=== PATIENT | female | born 1995 | race Caucasian/White ===

== ENCOUNTER 2023-08-13 04:22 | Emergency (ER) | payer BC, SELFPAY ==
[2023-08-13] VITALS (7 sets, daily range): BP systolic 96–114; BP diastolic 53–76; BMI 20.8
--- NOTE | 2023-08-13 04:58 | ED.GENMED ---
History of Present Illness
<Justice Sullivan DO - Last Filed: 08/13/23 06:32>
General
Chief Complaint: Abdominal Pain
Source: patient
Time Seen by Provider: 08/13/23 04:38
Nursing documentation reviewed up to this point in time: agreed with
Travel History
Have you had any contact with someone who has COVID-19?: No
Do you have any symptoms of coronavirus? Fever > 100 degrees, chills, cough, shortness of breath, sore throat, loss of taste or smell, muscle aches, or headache?: No
History of Present Illness
History of Present Illness:
This a pleasant 48-year-old female who presents with nausea, vomiting, nonbloody diarrhea, and generalized abdominal pain since yesterday around 9 PM. Patient concerned because she had takeout a few hours earlier and thought she had food poisoning.
She denies fever or chills. She states that she has not attempted to keep anything down. She did not take any antiemetics or antipyretics. Patient reports no medical problems. She does not take any medicines on a daily basis with the exception
of control pills. Her last menstrual period was over 1 week ago. She is does not feel that she could be . 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 She denies any chemical exposures. She does not smoke, drink
alcohol in excess, or do illicit drugs. She denies marijuana use. She reports no sick contacts. Denies chest pain or shortness of breath.
Past History
<DO Gatito Bragg Last Filed: 08/13/23 06:32>
Past History
ED Past Medical History: Psychiatric (Depression)
ED Past Surgical History: Appendectomy
Social History
Tobacco: Non-smoker
Alcohol: None
Personal: Single
Living: with family
Employment: Employed
Review of Systems
<DO Gatito Bragg Last Filed: 08/13/23 06:32>
Review of Systems
Allergies reviewed?: Yes
All Other Systems: ROS reviewed and negative except as documented in HPI and ROS
Constitutional: Reports no symptoms
EENT: Reports no symptoms
Respiratory: Reports no symptoms
Cardiac: Reports no symptoms
ABD/GI: Reports abdominal pain, nausea, vomiting and diarrhea
: Reports no symptoms
Musculoskeletal: Reports no symptoms
Skin: Reports no symptoms
Neurological: Reports no symptoms
Endocrine: Reports no symptoms
Hematologic/Lymphatic: Reports no symptoms
Psychiatric: Reports no symptoms
Phy Exam
<DO Gatito Bragg Filed: 08/13/23 06:32>
General Physical Exam
General Presentation: well appearing and no apparent distress
General Skin: warm and dry
General Habitus: normal
General Mental: alert
General Hydration: appears well hydrated
ENT Exam
ENT Exam: EOMI, pharynx normal, neck supple and normocephalic
Eye Exam
Eye Exam: PERRL, cornea clear and conjunctiva normal
Cardiovascular Exam
Cardiovascular Exam: regular rate/rhythm, no edema, no murmur and normal peripheral pulses
Pulmonary Exam
Pulmonary Exam: lungs clear, no respiratory distress, no rales, no crackles, no rhonchi, no stridor, no wheezing and no cough
Gastrointestinal Exam
Gastrointestinal Exam: normal bowel sounds, non tender, soft, no organomegaly, no pulsatile mass and non distended
Neurological Exam
Neurological Exam: alert, oriented x3, no motor deficits and speech normal
Musculoskeletal Exam
Musculoskeletal Exam: full ROM and no edema
Skin Exam
Skin Exam: normal color, warm/dry, no rash and no petechia
Psychiatric Exam
Psychiatric Exam: normal mood/affect
Course
<DO Gatito Bragg Filed: 08/13/23 06:32>
Orders/Labs/Results
Orders:
Orders
08/13/23 04:37
Electrocardiogram (*1) Urgent
Reason for Study: Abdominal Pain
EKG- Treatment ONCE
Test Result ONCE
08/13/23 04:55
0.9% Sodium Chloride 1000 ml [Nss] 1,000 ml IV BOLUS
Ondansetron Injectable [Zofran] 4 mg IV NOW STA
08/13/23 05:00
Complete Blood Count/With Diff Urgent
08/13/23 05:31
COVID-19 Antigen Urgent
Source: Nasal Swab
Comprehensive Metabolic Panel Urgent
HCG, Serum Qualitative Screen Urgent
Lipase Urgent
Troponin I Urgent
Influenza A+B Rapid Molecular Urgent
MAREN Source: Nasal Swab
Specimen Description:
08/13/23 05:59
Urinalysis Reflex To Culture Urgent
Date Specimen was Collected: 08/13/23
Time Specimen was Collected: 05:54
Urine Microscopic Reflex Cult Urgent
Urine Culture Urgent
MAREN Source: U
Specimen Description:
Date Specimen was Collected: 08/13/23
Time Specimen was Collected: 05:54
08/13/23 06:34
Ondansetron Injectable [Zofran] 4 mg .ROUTE .STK-MED ONE
08/13/23 06:35
Ondansetron Injectable [Zofran] 4 mg IV NOW STA
08/13/23 06:43
CT Abd/pel Without Iv Or Oral Urgent
Comment:
Reason For Exam: diffuse abdominal and flank pain
08/13/23 08:08
Metoclopramide [Reglan] 10 mg IV NOW STA
08/13/23 08:41
0.9% Sodium Chloride 1000 ml [Nss] 1,000 ml IV BOLUS
Abnormal Lab Results
08/13/23 08/13/23 08/13/23
05:00 05:31 05:59
WBC 15.3 H 10^3/uL
(4.8-10.8)
Hgb 10.7 L g/dL
(12.0-16.0)
Hct 34.6 L %
(37.0-47.0)
MCV 74.7 L fL
(81.0-99.0)
MCH 23.1 L pg
(27.0-31.0)
MCHC 30.9 L g/dL
(33.0-37.0)
Abs Immat Gran (auto) 0.1 H 10^3/uL
(0-0.05)
Absolute Neuts (auto) 14.1 H 10^3/uL
(1.4-6.5)
Absolute Lymphs (auto) 0.4 L 10^3/uL
(1.2-3.4)
Absolute Monos (auto) 0.7 H 10^3/uL
(0.1-0.6)
Immature Gran % 0.6 H %
(0-0.5)
Neutrophils % 92.1 H %
(42.2-75.2)
Lymphocytes % 2.5 L %
(20.5-51.1)
Chloride 108 H mmol/L
(98-107)
Carbon Dioxide 21 L mmol/L
(22-30)
Glucose 114 H mg/dl
(70-99)
Total Protein 8.4 H g/dl
(6.3-8.2)
Urine Ketones 1+ A
(Negative)
Ur Occult Blood Reflex 2+ A
(Negative)
Urine Bilirubin 1+ A
(Negative)
Leukocyte Esterase Rfl Trace A
(Negative)
Urine RBC 3-6 A /HPF
(0-2)
Urine Bacteria (Reflex) Moderate A
(Negative)
08/13/23 05:00
08/13/23 05:31
Vital Signs
Initial and Last Documented VS:
Initial Vital Signs
Temp Pulse Resp BP Pulse Ox
98.2 F 110 20 114/76 100
08/13/23 04:25 08/13/23 04:25 08/13/23 04:25 08/13/23 04:25 08/13/23 04:25
Last Documented Vital Signs
Temp Pulse Resp BP Pulse Ox
98.2 F 109 18 98/53 98
08/13/23 04:25 08/13/23 10:15 08/13/23 10:15 08/13/23 10:15 08/13/23 10:15
<Abbey Farah MD - Last Filed: 08/13/23 13:21>
Orders/Labs/Results
Orders:
Orders
08/13/23 04:37
Electrocardiogram (*1) Urgent
Reason for Study: Abdominal Pain
EKG- Treatment ONCE
Test Result ONCE
08/13/23 04:55
0.9% Sodium Chloride 1000 ml [Nss] 1,000 ml IV BOLUS
Ondansetron Injectable [Zofran] 4 mg IV NOW STA
08/13/23 05:00
Complete Blood Count/With Diff Urgent
08/13/23 05:31
COVID-19 Antigen Urgent
Source: Nasal Swab
Comprehensive Metabolic Panel Urgent
HCG, Serum Qualitative Screen Urgent
Lipase Urgent
Troponin I Urgent
Influenza A+B Rapid Molecular Urgent
MAREN Source: Nasal Swab
Specimen Description:
08/13/23 05:59
Urinalysis Reflex To Culture Urgent
Date Specimen was Collected: 08/13/23
Time Specimen was Collected: 05:54
Urine Microscopic Reflex Cult Urgent
Urine Culture Urgent
MAREN Source: U
Specimen Description:
Date Specimen was Collected: 02/28/24
Time Specimen was Collected: 05:54
08/13/23 06:34
Ondansetron Injectable [Zofran] 4 mg .ROUTE .STK-MED ONE
08/13/23 06:35
Ondansetron Injectable [Zofran] 4 mg IV NOW STA
08/13/23 06:43
CT Abd/pel Without Iv Or Oral Urgent
Comment:
Reason For Exam: diffuse abdominal and flank pain
08/13/23 08:08
Metoclopramide [Reglan] 10 mg IV NOW STA
08/13/23 08:41
0.9% Sodium Chloride 1000 ml [Nss] 1,000 ml IV BOLUS
Abnormal Lab Results
08/13/23 08/13/23 08/13/23
05:00 05:31 05:59
WBC 15.3 H 10^3/uL
(4.8-10.8)
Hgb 10.7 L g/dL
(12.0-16.0)
Hct 34.6 L %
(37.0-47.0)
MCV 74.7 L fL
(81.0-99.0)
MCH 23.1 L pg
(27.0-31.0)
MCHC 30.9 L g/dL
(33.0-37.0)
Abs Immat Gran (auto) 0.1 H 10^3/uL
(0-0.05)
Absolute Neuts (auto) 14.1 H 10^3/uL
(1.4-6.5)
Absolute Lymphs (auto) 0.4 L 10^3/uL
(1.2-3.4)
Absolute Monos (auto) 0.7 H 10^3/uL
(0.1-0.6)
Immature Gran % 0.6 H %
(0-0.5)
Neutrophils % 92.1 H %
(42.2-75.2)
Lymphocytes % 2.5 L %
(20.5-51.1)
Chloride 108 H mmol/L
(98-107)
Carbon Dioxide 21 L mmol/L
(22-30)
Glucose 114 H mg/dl
(70-99)
Total Protein 8.4 H g/dl
(6.3-8.2)
Urine Ketones 1+ A
(Negative)
Ur Occult Blood Reflex 2+ A
(Negative)
Urine Bilirubin 1+ A
(Negative)
Leukocyte Esterase Rfl Trace A
(Negative)
Urine RBC 3-6 A /HPF
(0-2)
Urine Bacteria (Reflex) Moderate A
(Negative)
08/13/23 05:00
08/13/23 05:31
Vital Signs
Initial and Last Documented VS:
Initial Vital Signs
Temp Pulse Resp BP Pulse Ox
98.2 F 110 20 114/76 100
08/13/23 04:25 08/13/23 04:25 08/13/23 04:25 08/13/23 04:25 08/13/23 04:25
Last Documented Vital Signs
Temp Pulse Resp BP Pulse Ox
98.2 F 109 18 98/53 98
08/13/23 04:25 08/13/23 10:15 08/13/23 10:15 08/13/23 10:15 08/13/23 10:15
<Abbey Farah MD - Last Filed: 08/13/23 13:21>
*Radiology
Radiology exam reviewed: radiology read reviewed
*Pulse Oximetry
Patient hypoxic: no
*EKG
Interpreted by ED Provider?: NA
*Mathematics Lecturer Interpretation
Rate: normal
Interpretation: normal
Rhythm: sinus
*Critical Care Note
Total Time (30-74mins, 75-104mins- exclusive of procedures): Not Applicable
<Justice Sullivan DO - Last Filed: 08/13/23 06:32>
Update Note
Update Note:
Vital signs are stable. Patient not hypoxic
Nursing note reviewed. I agree with nursing documentation up to this point in time.
Home Meds and allergies reviewed.
NUMBER AND COMPLEXITY OF PROBLEMS ADDRESSED AT THE ENCOUNTER
� Chronic conditions affecting care: Kidney reflux as a child, now resolved
� Acute Exacerbation and/or Progression of Chronic Illness: None
� Differential Diagnosis includes: Kidney stone, enteritis, hematuria, viral syndrome
AMOUNT AND/OR COMPLEXITY OF DATA TO BE REVIEWED AND ANALYZED
I performed an independent evaluation of the following and my interpretation is:
EKG: EKG shows normal sinus rhythm rate of 96 normal intervals, normal axis. No evidence of acute ischemia present.
CT:
X-rays:
Ultrasound:
Laboratory Studies: 15,000 white count, occult blood in urine while not menstruating
Other:
Review of other/old records: Previous ER records
Clinical information was obtained by an independent historian:
Prescriptions/Medications Considered but not given:
Further testing considered but not performed:
RISK OF COMPLICATIONS AND/OR MORBIDITY OR MORTALITY OF PATIENT MANAGEMENT
Social determinants of health affecting care: Good Social Support
Discussion with other providers:
Escalation of care including admission/observation vs risk of discharge considered: At this time, discharge not indicated.
CRITICAL CARE NOTE:
Total Time (exclusive of procedures):
Update:
<Abbey Farah MD - Last Filed: 08/13/23 13:21>
Update Note
Update Note:
Vital signs are stable. Patient not hypoxic
Nursing note reviewed. I agree with nursing documentation up to this point in time.
Home Meds and allergies reviewed.
NUMBER AND COMPLEXITY OF PROBLEMS ADDRESSED AT THE ENCOUNTER
� Chronic conditions affecting care: Kidney reflux as a child, now resolved
� Acute Exacerbation and/or Progression of Chronic Illness: None
� Differential Diagnosis includes: Kidney stone, enteritis, hematuria, viral syndrome
AMOUNT AND/OR COMPLEXITY OF DATA TO BE REVIEWED AND ANALYZED
I performed an independent evaluation of the following and my interpretation is:
EKG: EKG shows normal sinus rhythm rate of 96 normal intervals, normal axis. No evidence of acute ischemia present.
CT:
X-rays:
Ultrasound:
Laboratory Studies: 15,000 white count, occult blood in urine while not menstruating
Other:
Review of other/old records: Previous ER records
Clinical information was obtained by an independent historian:
Prescriptions/Medications Considered but not given:
Further testing considered but not performed:
RISK OF COMPLICATIONS AND/OR MORBIDITY OR MORTALITY OF PATIENT MANAGEMENT
Social determinants of health affecting care: Good Social Support
Discussion with other providers:
Escalation of care including admission/observation vs risk of discharge considered: At this time, discharge not indicated.
CRITICAL CARE NOTE:
Total Time (exclusive of procedures):
Update:
8:50 AM patient's CAT scan report read. Shows no obstructing renal or ureteral calculi nor hydronephrosis or hydroureter. Pancreas and gallbladder appear normal. There is no abdominal pelvic or inguinal lymphadenopathy there was 2 right-sided
ovarian cysts seen as well as a 6 mm calcification in the right ovary worrisome for dermoid. Pelvic ultrasound recommended. I informed patient of these results and we are now going to send her for pelvic ultrasound
9:50 AM patient went down to have an ultrasound done but her bladder was not full enough. Patient was encouraged to stay for ultrasound. Patient adamantly wants to go and states that her pain is gone and she feels better. She understands that she
needs to follow-up with her plating stripper soon as possible for worrisome right-sided ovarian cyst. Patient will be given a copy of her CAT scan report and will be encouraged to call her plating stripper soon as possible
ED Attending Note
<Justice Sullivan, DO - Last Filed: 08/13/23 06:32>
-
Portions of this chart may have been created with voice recognition software.� Occasional wrong word or��sound alike� substitutions may have occurred due to the inherent limitations of voice recognition software.
Discharge Plan
Departure
Patient Disposition: Home (Routine Discharge)
Date of Disposition: 08/13/23
Time of Disposition: 09:48
Patient with high blood pressure during this ER visit?: No
Condition: Good
Covid-19: Negative COVID-19
Discharge Problem:
Nausea & vomiting
Instructions: Nausea and Vomiting, Adult (DC)
Prescriptions:
New
metoclopramide HCl [Reglan] 10 mg tablet
10 mg PO Q8HPRN PRN (Reason: nausea and vomiting) Qty: 9 0RF
No Action
medroxyprogesterone [Depo-Provera] 150 MG/1 ML syringe
150 mg IM .EVERY 3 MONTHS
prednisone 10 MG tablet
10 mg PO .TAPER Qty: 30 0RF
Rx Instructions:
Take 40mg daily x3days, 30mg daily x3days,
20mg daily x3days, 10mg daily x3days.
penicillin V potassium 500 MG tablet
500 mg PO QID Qty: 27 0RF
Referrals:
NONE,* [Family Provider] -
Stand Alone Forms: Return to Work
Activity Restrictions/Additional Instructions:
Follow-up with your plating stripper as soon as possible. Your CAT scan shows a right-sided ovarian cyst that needs closer follow-up and will need a pelvic ultrasound done as soon as possible.
Interventions
Interventions:
*Risk Screen - Suicide Last Done: 08/13/23 04:25
*General Assessment Last Done: 08/13/23 04:25
*Neglect/Abuse Screening Last Done: 08/13/23 04:25
ED- Fall Risk Assessment Last Done: 08/13/23 04:25
*ED COVID-19 Vaccine History Last Done: 08/13/23 04:25
*Nursing Disposition Last Done: 08/13/23 10:34
GI-Dwzuvx-Iglyomdwow Assessment Last Done: 08/13/23 08:18
Discharge Date and Time
Discharge Date/Time: 08/13/23 10:35
[2023-08-13] MEDS: NSS 1000 IV ×2 (05:05→08:41)
[2023-08-13 05:09] LABS: % Basophils 0.3 % (0-2); % Eosinophils 0.1 % (0-6); % Immature Granulocytes 0.6 % (0-0.5); % Lymphocytes 2.5 % (20.5-51.1); % Monocytes 4.4 % (1.7-9.3); % Neutrophils 92.1 % (42.2-75.2); Absolute Basophils 0.1 10^3/uL (0-0.2); Absolute Immature Granulocytes 0.1 10^3/uL (0-0.05); Absolute Lymphocytes 0.4 10^3/uL (1.2-3.4); Absolute Monocytes 0.7 10^3/uL (0.1-0.6); Absolute Neutrophils 14.1 10^3/uL (1.4-6.5); Hematocrit 34.6 % (37.0-47.0); Hemoglobin 10.7 g/dL (12.0-16.0); Mean Corp Hgb Conc. 30.9 g/dL (33.0-37.0); Mean Corpuscular Hgb 23.1 pg (27.0-31.0); Mean Corpuscular Volume 74.7 fL (81.0-99.0); Mean Platelet Volume 10.1 fL (7.4-10.4); Nucleated Red Blood Cells % 0 %; Platelet Count 361 10^3/uL (130-400); Red Blood Cell Count 4.63 10^6/uL (4.20-5.40); Red Cell Dist. Width 14.5 % (11.5-14.5); White Blood Cell Count 15.3 10^3/uL (4.8-10.8)
[2023-08-13] MEDS: ZOFRAN 4 MG IV ×2 (05:17→06:35)
[2023-08-13 05:58] LABS: HCG, Serum Qualitative Screen Negative
[2023-08-13 06:05] LABS: ALT (SGPT) 13 U/L (0-35); AST (SGOT) 23 U/L (14-36); Albumin 4.9 g/dl (3.5-5.0); Alkaline Phosphatase 69 U/L (38-126); Blood Urea Nitrogen 13 mg/dl (7-17); COVID-19 Antigen Negative (Negative); Calcium 9.4 mg/dl (8.4-10.2); Carbon Dioxide 21 mmol/L (22-30); Chloride 108 mmol/L (98-107); Estimated Creatinine Clearance 78 ml/min; Glucose 114 mg/dl (70-99); Lipase 45 U/L (23-300); Potassium 4.1 mmol/L (3.5-5.1); Sodium 138 mmol/L (135-145); Total Protein 8.4 g/dl (6.3-8.2); eGFR > 60.00
[2023-08-13 06:12] LABS: Urine Albumin Trace (Neg - Trace); Urine Bilirubin 1+ (Negative); Urine Character Slightly Cloudy (Clear); Urine Color Yellow; Urine Glucose Negative (Negative); Urine Ketone 1+ (Negative); Urine Leukocyte Trace (Negative); Urine Nitrite Negative (Negative); Urine Occult Blood 2+ (Negative); Urine Urobilinogen Negative (Neg - 1+)
[2023-08-13 06:16] LABS: Troponin I < 0.012 ng/ml
[2023-08-13 06:31] LABS: Urine Squamous Cell 0-2 /LPF (Few)
[2023-08-13 06:32] LABS: Urine Mucus Moderate
[2023-08-13 06:38] LABS: Urine Bacteria Moderate (Negative)
[2023-08-13] MEDS: REGLAN 10 MG IV (08:13)
== END 2023-08-13 10:35 | disposition home or self-care (01) ==
LOC: EMR 04:22
PROVIDERS: EMERGENCY PHYSICIAN Student in an Organized Health Care Education/Training Program
DX: R11.2 Nausea with vomiting, unspecified (principal); R19.7 Diarrhea, unspecified
CPT/HCPCS: 99284; 96374; 96375; 96376; 96361; 74176; 80053; 81003; 81015; 83690; 84484; 84703; 85025; 87086; 87502; 87811; 93005

== ENCOUNTER 2023-08-16 11:40 | Emergency (ER) | payer BC, SELFPAY ==
[2023-08-16 11:44] VITALS: BP 102/66
[2023-08-16 12:21] VITALS: BP 100/87
--- NOTE | 2023-08-16 12:50 | ED.GENMED ---
History of Present Illness
General
Chief Complaint: Abdominal Symptoms
Source: patient
Exam Limitations: none
Time Seen by Provider: 08/16/23 12:26
Nursing documentation reviewed up to this point in time: agreed with
Travel History
Have you had any contact with someone who has COVID-19?: No
Do you have any symptoms of coronavirus? Fever > 100 degrees, chills, cough, shortness of breath, sore throat, loss of taste or smell, muscle aches, or headache?: No
History of Present Illness
History of Present Illness:
28 yr old female presents today for evaluation. Patient was seen here August 13 several days ago with nausea vomiting nonbloody diarrhea. She had a CAT scan which showed a right-sided ovarian cyst measuring 2.5-2.8 there is also a below bed 6 mm
calcification in the right very worrisome for dermoid. She was feeling better on nausea medicine but then today has not been able to hold down any liquids. She denies any abdominal pain.
Her only complaint is nausea.
Past History
Past History
ED Past Medical History: Psychiatric (Depression)
ED Past Surgical History: Appendectomy
Social History
Tobacco: Non-smoker
Alcohol: None
Personal: Single
Living: with family
Employment: Employed
Review of Systems
Review of Systems
Allergies reviewed?: Yes
All Other Systems: ROS reviewed and negative except as documented in HPI and ROS
Constitutional: Reports no symptoms; Denies fever, fatigue or chills
Respiratory: Reports no symptoms
Cardiac: Reports no symptoms
ABD/GI: Reports nausea and vomiting; Denies abdominal pain
: Reports no symptoms; Denies flank pain, urgency or discharge
Musculoskeletal: Reports no symptoms
Skin: Reports no symptoms
Neurological: Reports no symptoms
Psychiatric: Reports no symptoms
Phy Exam
General Physical Exam
General Presentation: no apparent distress
General age: appears stated age
General Skin: warm and dry
General Habitus: normal
General Mental: alert
General Hydration: dry mucous membranes
Cardiovascular Exam
Cardiovascular Exam: regular rate/rhythm, no murmur and normal peripheral pulses
Pulmonary Exam
Pulmonary Exam: lungs clear and no respiratory distress
Gastrointestinal Exam
Gastrointestinal Exam: non tender and soft
Musculoskeletal Exam
Musculoskeletal Exam: full ROM
Skin Exam
Skin Exam: normal color and warm/dry
Psychiatric Exam
Psychiatric Exam: normal mood/affect
Course
Orders/Labs/Results
Orders:
Orders
08/16/23 13:03
IV Insert/Care/Rem.- Treatment PRN
0.9% Sodium Chloride 1000 ml [Nss] 1,000 ml IV BOLUS
Metoclopramide [Reglan] 10 mg IV NOW STA
08/16/23 13:06
Basic Metabolic Panel Urgent
Complete Blood Count/With Diff Urgent
Lipase Urgent
Urinalysis Reflex To Culture Urgent
Date Specimen was Collected: 08/16/23
Time Specimen was Collected: 13:05
Urine Microscopic Reflex Cult Urgent
Urine Culture Urgent
MAREN Source: U
Specimen Description:
Date Specimen was Collected: 08/16/23
Time Specimen was Collected: 13:05
08/16/23 15:35
Ondansetron Injectable [Zofran] 4 mg IV NOW STA
08/16/23 15:37
Potassium Urgent
08/16/23 15:45
0.9% Sodium Chloride 1000 ml [Nss] 1,000 ml IV BOLUS
08/16/23 17:15
Potassium Chloride 10% Elixir [KCl Elixir] 40 meq PO NOW STA
08/16/23 17:44
Ondansetron Orally Disint [Zofran Odt (Orally Disintegrating)] 4 mg PO NOW STA
Abnormal Lab Results
08/16/23 08/16/23
13:06 15:37
Hgb 11.1 L g/dL
(12.0-16.0)
Hct 34.2 L %
(37.0-47.0)
MCV 72.6 L fL
(81.0-99.0)
MCH 23.6 L pg
(27.0-31.0)
MCHC 32.5 L g/dL
(33.0-37.0)
RDW 14.9 H %
(11.5-14.5)
MPV 10.9 H fL
(7.4-10.4)
Absolute Neuts (auto) 7.9 H 10^3/uL
(1.4-6.5)
Absolute Lymphs (auto) 0.7 L 10^3/uL
(1.2-3.4)
Neutrophils % 87.0 H %
(42.2-75.2)
Lymphocytes % 7.8 L %
(20.5-51.1)
Potassium 3.1 L mmol/L
(3.5-5.1)
Urine Ketones 2+ A
(Negative)
Ur Occult Blood Reflex 3+ A
(Negative)
Urine Bilirubin 1+ A
(Negative)
Leukocyte Esterase Rfl Trace A
(Negative)
Urine RBC 30-40 A /HPF
(0-2)
Urine WBC (Reflex) 11-15 A /HPF
(0-5)
Urine Bacteria (Reflex) Many A
(Negative)
Urine Albumin (Reflex) 2+ A
(Neg - Trace)
08/16/23 13:06
08/16/23 15:37
Vital Signs
Initial and Last Documented VS:
Initial Vital Signs
Temp Pulse Resp BP Pulse Ox
98.1 F 110 18 102/66 97
08/16/23 11:44 08/16/23 11:44 08/16/23 11:44 08/16/23 11:44 08/16/23 11:44
Last Documented Vital Signs
Temp Pulse Resp BP Pulse Ox
98.1 F 94 16 94/67 98
08/16/23 11:44 08/16/23 17:48 08/16/23 13:48 08/16/23 17:48 08/16/23 17:48
MDM/Problems Addressed
Differential Diagnosis Includes:
Not limited to viral syndrome gastroenteritis dehydration electrolyte abnormality
MDM/Problems Addressed:
Patient was seen here 08/13 with complaints of nausea vomiting. Patient now presents again with nausea vomiting denies any diarrhea denies any abdominal pain. Incidental findings were seen on prior imaging/right ovarian cyst patient aware and will
follow-up with social human services assistants. She presents awake alert no acute distress she was medicated for nausea here in the ER given fluids and now feeling much better. Potassium was mildly low however she was not able to tolerate oral KCl encourage Gatorade
with fluids for the next 24 hours and foods rich in potassium thereafter. Patient is nontoxic-appearing afebrile and safe for discharge
*Pulse Oximetry
Patient hypoxic: no
*Critical Care Note
Total Time (30-74mins, 75-104mins- exclusive of procedures): Not Applicable
Data Reviewed
Review of Other/Old Records Reveals: Radiology Studies and Other (last ED visit and prior imaging )
ED Attending Note
-
Portions of this chart may have been created with voice recognition software.� Occasional wrong word or��sound alike� substitutions may have occurred due to the inherent limitations of voice recognition software.
Discharge Plan
Departure
Patient Disposition: Home (Routine Discharge)
Date of Disposition: 08/16/23
Time of Disposition: 17:46
Patient with high blood pressure during this ER visit?: No
Condition: Fair
Covid-19: Not Applicable
Discharge Problem:
Nausea & vomiting
Instructions: Nausea and Vomiting, Adult (DC)
Prescriptions:
New
ondansetron 4 mg tablet,disintegrating
4 mg PO Q8H PRN (Reason: nausea and vomiting) Qty: 10 0RF
No Action
medroxyprogesterone [Depo-Provera] 150 MG/1 ML syringe
150 mg IM .EVERY 3 MONTHS
prednisone 10 MG tablet
10 mg PO .TAPER Qty: 30 0RF
Rx Instructions:
Take 40mg daily x3days, 30mg daily x3days,
20mg daily x3days, 10mg daily x3days.
penicillin V potassium 500 MG tablet
500 mg PO QID Qty: 27 0RF
metoclopramide HCl [Reglan] 10 mg tablet
10 mg PO Q8HPRN PRN (Reason: nausea and vomiting) Qty: 9 0RF
Referrals:
UNKNOWN - PT DOES,NOT KNOW [Family Provider] -
Stand Alone Forms: Return to Work
Activity Restrictions/Additional Instructions:
As discussed you may take Zofran as needed every 8 hours. Your potassium was slightly low at 3.1. Over the next 24 hours she may sip on Gatorade. After 24 hours bland solid foods increase your foods high in potassium such as bananas oranges
potatoes.
Return to the ER for any worsening of symptoms.
Interventions
Interventions:
*Risk Screen - Suicide Last Done: 08/16/23 12:23
*General Assessment Last Done: 08/16/23 12:22
*Neglect/Abuse Screening Last Done: 08/16/23 12:23
ED- Fall Risk Assessment Last Done: 08/16/23 12:23
*ED COVID-19 Vaccine History Last Done: 08/16/23 12:16
*Nursing Disposition Last Done: 08/16/23 18:05
WX-Xfiuif-Cxdlhudxjc Assessment Last Done: 08/16/23 12:23
Discharge Date and Time
Discharge Date/Time: 08/16/23 18:06
[2023-08-16] MEDS: REGLAN 10 MG IV (13:08)
[2023-08-16] MEDS: NSS 1000 IV ×2 (13:09→15:54)
[2023-08-16 13:14] LABS: % Basophils 0.2 % (0-2); % Immature Granulocytes 0.3 % (0-0.5); % Lymphocytes 7.8 % (20.5-51.1); % Monocytes 4.7 % (1.7-9.3); Absolute Lymphocytes 0.7 10^3/uL (1.2-3.4); Absolute Monocytes 0.4 10^3/uL (0.1-0.6); Absolute Neutrophils 7.9 10^3/uL (1.4-6.5); Hematocrit 34.2 % (37.0-47.0); Hemoglobin 11.1 g/dL (12.0-16.0); Mean Corp Hgb Conc. 32.5 g/dL (33.0-37.0); Mean Corpuscular Hgb 23.6 pg (27.0-31.0); Mean Corpuscular Volume 72.6 fL (81.0-99.0); Mean Platelet Volume 10.9 fL (7.4-10.4); Nucleated Red Blood Cells % 0 %; Platelet Count 234 10^3/uL (130-400); Red Blood Cell Count 4.71 10^6/uL (4.20-5.40); Red Cell Dist. Width 14.9 % (11.5-14.5); White Blood Cell Count 9.1 10^3/uL (4.8-10.8)
[2023-08-16 13:21] LABS: Urine Albumin 2+ (Neg - Trace); Urine Bilirubin 1+ (Negative); Urine Character Slightly Cloudy (Clear); Urine Color Yellow; Urine Glucose Negative (Negative); Urine Ketone 2+ (Negative); Urine Leukocyte Trace (Negative); Urine Nitrite Negative (Negative); Urine Occult Blood 3+ (Negative); Urine Urobilinogen Negative (Neg - 1+)
[2023-08-16 13:34] LABS: Urine Mucus Many; Urine Squamous Cell >30 /LPF (Few)
[2023-08-16 13:35] LABS: Urine Red Blood Cell 30-40 /HPF (0-2)
[2023-08-16 13:36] LABS: Urine Bacteria Many (Negative)
[2023-08-16 13:39] LABS: Blood Urea Nitrogen 17 mg/dl (7-17); Calcium 9.4 mg/dl (8.4-10.2); Carbon Dioxide 23 mmol/L (22-30); Chloride 104 mmol/L (98-107); Glucose 94 mg/dl (70-99); Lipase 69 U/L (23-300); Sodium 138 mmol/L (135-145); eGFR > 60.00
[2023-08-16 13:48] VITALS: BP 100/65
[2023-08-16 15:52] VITALS: BP 96/67
[2023-08-16] MEDS: ZOFRAN 4 MG IV (15:54)
[2023-08-16 16:05] LABS: Potassium 3.1 mmol/L (3.5-5.1)
[2023-08-16] MEDS: KCL ELIXIR 40 MEQ PO (17:20)
[2023-08-16 17:48] VITALS: BP 94/67
[2023-08-16] MEDS: ZOFRAN ODT (ORALLY DISINTEGRATING) 4 MG PO (17:57)
== END 2023-08-16 18:06 | disposition home or self-care (01) ==
LOC: EMR 11:40
PROVIDERS: Nurse Practitioner; EMERGENCY PHYSICIAN Emergency Medicine
DX: R11.2 Nausea with vomiting, unspecified (principal)
CPT/HCPCS: 99283; 96374; 96375; 96361; 80048; 81003; 81015; 83690; 84132; 85025; 87086

== ENCOUNTER 2024-03-21 17:35 | Emergency (ER) | payer BC, SELFPAY ==
[2024-03-21 17:38] VITALS: BP 111/63
--- NOTE | 2024-03-21 19:48 | ED.GENMED ---
History of Present Illness
<Odilia Hutchinson PA-C - Last Filed: 03/21/24 23:40>
General
Chief Complaint: Musculo-Skeletal Complaint
Source: patient
Exam Limitations: none
Time Seen by Provider: 03/21/24 19:29
Nursing documentation reviewed up to this point in time: agreed with
History of Present Illness
History of Present Illness:
Patient is a 29-year-old female presenting to the emergency department for evaluation of left arm injury occurring 2 days ago. Patient states that she was loading a box as she is moving when the box fell and she attempted to catch her with her left
arm. She feels that the box strained her left forearm. She has been having lingering pain in her left arm ranging from her left shoulder down to her left wrist. Patient denies any numbness/tingling in her left arm. She has been taking Advil at
home with some improvement in pain. Pain is persisting prompting patient's visit to the emergency department. No other injury sustained.
Past History
<Odilia Hutchinson PA-C - Last Filed: 03/21/24 23:40>
Past History
ED Past Medical History: Psychiatric (Depression)
ED Past Surgical History: Appendectomy
Social History
Tobacco: Non-smoker
Alcohol: None
Personal: Single
Living: with family
Employment: Employed
Review of Systems
<Odilia Hutchinson PA-C - Last Filed: 03/21/24 23:40>
Review of Systems
Allergies reviewed?: Yes
All Other Systems: ROS reviewed and negative except as documented in HPI and ROS
Phy Exam
<Odilia Hutchinson PA-C - Last Filed: 03/21/24 23:40>
Physical Exam
Physical Exam:
Vitals: Patient's vital signs are stable. Afebrile
General: Patient is well appearing, no acute distress
Skin: Warm and dry, no rashes or lesions
Head: Normocephalic, atraumatic
Throat: Protecting airway
Neck: Normal ROM, no cervical spine tenderness
Cardiac: Regular rate
Pulm: No apparent respiratory distress
Abdomen: Nondistended
Extremities: Left upper extremity without any obvious signs of trauma. No bony tenderness in left upper extremity from left hand to left shoulder/left clavicle. Patient has minimal pain in the left volar forearm and surrounding left shoulder.
Patient has full ability to flex/extend left wrist. Decent flexion/extension of left elbow. Patient does have limited ability to abduct/externally rotate left shoulder due to pain. Left upper extremity neurovascularly intact.
Neuro: Grossly intact
Psychiatric: Normal affect.
Course
<Odilia Hutchinson PA-C - Last Filed: 03/21/24 23:40>
Orders/Labs/Results
Orders:
Orders
03/21/24 17:42
CR Forearm - Left 2 View Urgent
Comment:
Reason For Exam: injury
CR Shoulder, Trauma - Left Urgent
Reason For Exam: injury
CR Wrist - Left Min 3 Views Urgent
Comment:
Reason For Exam: injury
03/21/24 19:48
Ibuprofen [Motrin] 600 mg PO NOW STA
03/21/24 19:57
Sling Left-Treatment ONCE
Vital Signs
Initial and Last Documented VS:
Initial Vital Signs
Temp Pulse Resp BP Pulse Ox
98.8 F 88 18 111/63 100
03/21/24 17:38 03/21/24 17:38 03/21/24 17:38 03/21/24 17:38 03/21/24 17:38
Last Documented Vital Signs
Temp Pulse Resp BP Pulse Ox
98.7 F 82 18 110/66 100
03/21/24 20:46 03/21/24 20:46 03/21/24 20:46 03/21/24 20:46 03/21/24 20:46
<Raman Noriega DO - Last Filed: 03/21/24 20:11>
Orders/Labs/Results
Orders:
Orders
03/21/24 17:42
CR Forearm - Left 2 View Urgent
Comment:
Reason For Exam: injury
CR Shoulder, Trauma - Left Urgent
Reason For Exam: injury
CR Wrist - Left Min 3 Views Urgent
Comment:
Reason For Exam: injury
03/21/24 19:48
Ibuprofen [Motrin] 600 mg PO NOW STA
03/21/24 19:57
Sling Left-Treatment ONCE
Vital Signs
Initial and Last Documented VS:
Initial Vital Signs
Temp Pulse Resp BP Pulse Ox
98.8 F 88 18 111/63 100
03/21/24 17:38 03/21/24 17:38 03/21/24 17:38 03/21/24 17:38 03/21/24 17:38
Last Documented Vital Signs
Temp Pulse Resp BP Pulse Ox
98.7 F 82 18 110/66 100
03/21/24 20:46 03/21/24 20:46 03/21/24 20:46 03/21/24 20:46 03/21/24 20:46
<Odilia Hutchinson PA-C - Last Filed: 03/21/24 23:40>
MDM/Problems Addressed
Differential Diagnosis Includes:
Not limited to: Rotator cuff injury, shoulder dislocation, left elbow strain, left bicep strain, cervical radiculopathy,
MDM/Problems Addressed:
29-year-old female presenting with left arm injury sustained 2 days ago. Patient very well-appearing, no apparent distress. On exam�there is no obvious trauma to left upper extremity or any bony tenderness. She does have limited ability to
abduct/externally rotate the left shoulder due to discomfort. Mild tenderness of left volar forearm. No edema or ecchymoses noted to left upper extremity. Left upper extremity neurovascular intact. X-rays were obtained in triage of left wrist,
left forearm, and left shoulder. There is no evidence of acute abnormality or fracture. Suspect likely rotator cuff injury versus sprain/muscular strain. Patient was given dose of Motrin in emergency department. Will place patient in left
shoulder sling and advise NSAIDs at home, ice. Patient offered left wrist splint as well�which she declined. Patient given referral to orthopedics if symptoms persist/worsen for possibly further imaging. Patient stable for discharge with return
precautions. Patient seen with attending physician.
Chronic conditions affecting care:
N/A
Acute Exacerbation and/or Progression of Chronic Illness:
N/A
<Odilia Hutchinson PA-C - Last Filed: 03/21/24 23:40>
*Radiology
Radiology exam reviewed: preliminary read by ED provider and radiology read reviewed
*Pulse Oximetry
Patient hypoxic: no
*EKG
Interpreted by ED Provider?: NA
*Tester Equipment Interpretation
Rate: Tester Equipment- N/A
*Critical Care Note
Total Time (30-74mins, 75-104mins- exclusive of procedures): Not Applicable
ED Attending Note
<Odilia Hutchinson PA-C - Last Filed: 03/21/24 23:40>
-
Portions of this chart may have been created with voice recognition software.� Occasional wrong word or��sound alike� substitutions may have occurred due to the inherent limitations of voice recognition software.
<Raman Noriega DO - Last Filed: 03/21/24 20:11>
ED Attending Note
Patient seen and examined by attending physician: Yes
I performed the substantive portion of visit, reviewed & personally made and approve the management plan that is documented in note by myself or MIGUEL.: Yes
Discharge Plan
Departure
Patient Disposition: Home (Routine Discharge)
Date of Disposition: 03/21/24
Time of Disposition: 19:59
Patient with high blood pressure during this ER visit?: No
Condition: Good
Covid-19: Not Applicable
Discharge Problem:
Injury of left shoulder
Instructions: Shoulder Sprain (DC)
Prescriptions:
No Action
medroxyprogesterone [Depo-Provera] 150 MG/1 ML syringe
150 mg IM .EVERY 3 MONTHS
prednisone 10 MG tablet
10 mg PO .TAPER Qty: 30 0RF
Rx Instructions:
Take 40mg daily x3days, 30mg daily x3days,
20mg daily x3days, 10mg daily x3days.
penicillin V potassium 500 MG tablet
500 mg PO QID Qty: 27 0RF
metoclopramide HCl [Reglan] 10 mg tablet
10 mg PO Q8HPRN PRN (Reason: nausea and vomiting) Qty: 9 0RF
ondansetron 4 mg tablet,disintegrating
4 mg PO Q8H PRN (Reason: nausea and vomiting) Qty: 10 0RF
Referrals:
Kee Atkins MD [Active] - As needed
Activity Restrictions/Additional Instructions:
RETURN TO THE EMERGENCY DEPARTMENT WITH ANY NUMBNESS/TINGLING IN LEFT UPPER EXTREMITY, INTRACTABLE PAIN, WORSENING IN CURRENT SYMPTOMS, OR ANY OTHER CONCERNS
-You should take motrin/ibuprofen as needed for pain. You can apply ice to left arm
-Keep left arm in shoulder sling. You should move your arm around frequently throughout the day to prevent frozen shoulder.
-If symptoms persist you should follow-up with orthopedics as you may require MRI imaging of your shoulder. The contact information has been provided for you above.
Monitor your symptoms closely and return to the emergency department with any acute worsening/new symptoms.
Interventions
Interventions:
*Risk Screen - Suicide Last Done: 03/21/24 17:38
*General Assessment Last Done: 03/21/24 17:38
*Neglect/Abuse Screening Last Done: 03/21/24 17:38
ED- Fall Risk Assessment Last Done: 03/21/24 20:46
*ED COVID-19 Vaccine History Last Done: 03/21/24 20:40
*Nursing Disposition Last Done: 03/21/24 20:46
ED-Musculoskeletal Assessment Last Done: 03/21/24 20:45
Discharge Date and Time
Discharge Date/Time: 03/21/24 20:47
Print Language: GHANAIAN
[2024-03-21] MEDS: MOTRIN 600 MG PO (20:24)
[2024-03-21 20:37] VITALS: BMI 19.9
[2024-03-21 20:46] VITALS: BP 110/66
== END 2024-03-21 20:47 | disposition home or self-care (01) ==
LOC: EMR 17:35
PROVIDERS: EMERGENCY PHYSICIAN Emergency Medicine
DX: S49.92XA Unspecified injury of left shoulder and upper arm, initial encounter (principal); X50.0XXA Overexertion from strenuous movement or load, initial encounter
CPT/HCPCS: 99283; 73030; 73090; 73110

== ENCOUNTER 2024-06-17 11:17 | Emergency (ER) | payer BC, SELFPAY ==
[2024-06-17 11:19] VITALS: BP 120/71
[2024-06-17 11:52] LABS: % Basophils 0.4 % (0-2); % Eosinophils 0.5 % (0-6); % Immature Granulocytes 0.2 % (0-0.5); % Lymphocytes 3.8 % (20.5-51.1); % Monocytes 5.9 % (1.7-9.3); % Neutrophils 89.2 % (42.2-75.2); Absolute Basophils 0.1 10^3/uL (0-0.2); Absolute Eosinophils 0.1 10^3/uL (0-0.7); Absolute Lymphocytes 0.4 10^3/uL (1.2-3.4); Absolute Monocytes 0.7 10^3/uL (0.1-0.6); Hematocrit 30.9 % (37.0-47.0); Hemoglobin 9.1 g/dL (12.0-16.0); Mean Corp Hgb Conc. 29.4 g/dL (33.0-37.0); Mean Corpuscular Hgb 21.1 pg (27.0-31.0); Mean Corpuscular Volume 71.5 fL (81.0-99.0); Mean Platelet Volume 9.9 fL (7.4-10.4); Nucleated Red Blood Cells % 0 %; Platelet Count 335 10^3/uL (130-400); Red Blood Cell Count 4.32 10^6/uL (4.20-5.40); Red Cell Dist. Width 16.1 % (11.5-14.5); White Blood Cell Count 11.2 10^3/uL (4.8-10.8)
[2024-06-17 12:05] LABS: ALT (SGPT) 12 U/L (0-35); AST (SGOT) 19 U/L (14-36); Albumin 5.3 g/dl (3.5-5.0); Alkaline Phosphatase 70 U/L (38-126); Blood Urea Nitrogen 10 mg/dl (7-17); Calcium 9.3 mg/dl (8.4-10.2); Carbon Dioxide 22 mmol/L (22-30); Chloride 99 mmol/L (98-107); Glucose 102 mg/dl (70-99); Potassium 3.6 mmol/L (3.5-5.1); Sodium 135 mmol/L (135-145); Total Bilirubin 0.4 mg/dl (0.2-1.3); Total Protein 8.5 g/dl (6.3-8.2); eGFR > 60.00
[2024-06-17 12:14] LABS: Troponin I < 0.012 ng/ml
[2024-06-17 12:21] LABS: HCG, Serum Qualitative Screen Negative
[2024-06-17 12:25] LABS: INR 0.98; PT 13.5 Sec (11.4-14.6)
[2024-06-17 12:59] VITALS: BP 119/70
--- NOTE | 2024-06-17 13:10 | ED.GENMED ---
History of Present Illness
General
Chief Complaint: Chest Pain
Source: patient
Exam Limitations: none
Time Seen by Provider: 06/17/24 12:47
History of Present Illness
History of Present Illness:
29-year-old female otherwise healthy presents complaining of chest pressure. Has been getting worse for several days. She notes a cough that started this morning as well. No fever. No known sick contacts. She describes a heavy weight on her
chest. This is constant. No increased pain with deep breathing. She feels it is hard to take a breath however. No recent travel or surgery. No leg swelling or calf pain. No abdominal pain vomiting or diarrhea. No other complaints at this time
Past History
Past History
ED Past Medical History: Psychiatric (Depression)
ED Past Surgical History: Appendectomy
Social History
Tobacco: Non-smoker
Alcohol: None
Personal: Single
Living: with family
Employment: Employed
Phy Exam
Physical Exam
Physical Exam:
General: Well-appearing female no acute respiratory distress HEENT: Normocephalic atraumatic
Heart: Tachycardic but regular
Lungs: Clear no wheeze abdomen soft nontender nondistended no guarding rebound
Extremities: No cyanosis no edema
Skin is warm no rash
Scores
Heart Score for Chest Pain Patients
STEMI patient?: No
History: Slightly or Non-Suspicious
ECG: Normal
Age: </= 45 years
Risk Factors: No Risk Factors
Troponin: </= Normal Limit
Heart Score for Chest Pain Patients: 0
Heart Score Risk: 2.5% MACE over next 6 weeks
Course
Orders/Labs/Results
Orders:
Orders
06/17/24 11:17
EKG [Electrocardiogram (*1)] Urgent
Reason for Study: Chest Pain
06/17/24 11:18
EKG- Treatment ONCE
06/17/24 11:22
Test Result ONCE
06/17/24 11:29
Complete Blood Count/With Diff Urgent
Comprehensive Metabolic Panel Urgent
D-Dimer Urgent
Comment: ADD ON
HCG, Serum Qualitative Screen Urgent
Prothrombin Time Urgent
Troponin I Urgent
06/17/24 13:01
Add On- LAB Urgent
Tests Added?: DDimer
06/17/24 13:03
0.9% Sodium Chloride 1000 ml [Nss] 1,000 ml IV BOLUS
06/17/24 13:06
CR Chest - 2 Views Urgent
Comment:
Reason For Exam: chest pain
06/17/24 13:14
COVID-19 Antigen Urgent
Source: Nasal Swab
Influenza A+B Rapid Molecular Urgent
MAREN Source: Nasal Swab
Specimen Description:
Abnormal Lab Results
06/17/24
11:29
WBC 11.2 H 10^3/uL
(4.8-10.8)
Hgb 9.1 L g/dL
(12.0-16.0)
Hct 30.9 L %
(37.0-47.0)
MCV 71.5 L fL
(81.0-99.0)
MCH 21.1 L pg
(27.0-31.0)
MCHC 29.4 L g/dL
(33.0-37.0)
RDW 16.1 H %
(11.5-14.5)
Absolute Neuts (auto) 10.0 H 10^3/uL
(1.4-6.5)
Absolute Lymphs (auto) 0.4 L 10^3/uL
(1.2-3.4)
Absolute Monos (auto) 0.7 H 10^3/uL
(0.1-0.6)
Neutrophils % 89.2 H %
(42.2-75.2)
Lymphocytes % 3.8 L %
(20.5-51.1)
Glucose 102 H mg/dl
(70-99)
Total Protein 8.5 H g/dl
(6.3-8.2)
Albumin 5.3 H g/dl
(3.5-5.0)
06/17/24 11:29
06/17/24 11:29
Vital Signs
Initial and Last Documented VS:
Initial Vital Signs
Temp Pulse Resp BP Pulse Ox
97.9 F 108 18 120/71 100
06/17/24 11:19 06/17/24 11:19 06/17/24 11:19 06/17/24 11:19 06/17/24 11:19
Last Documented Vital Signs
Temp Pulse Resp BP Pulse Ox
97.9 F 102 23 100/60 100
06/17/24 11:19 06/17/24 14:00 06/17/24 14:00 06/17/24 14:00 06/17/24 14:00
MDM/Problems Addressed
Differential Diagnosis Includes:
Patient with chest pressure. EKG shows sinus tachycardia. She is tachycardic in the room at around 110s 115 beats a minute. No PE risk factors but D-dimer was added. Initial troponin is undetectable. Will test for COVID and flu and order chest
x-ray. Fluids ordered as well
*Critical Care Note
Total Time (30-74mins, 75-104mins- exclusive of procedures): Not Applicable
Update Note
Update Note:
COVID and flu negative. D-dimer normal. X-ray has been ordered but while waiting for x-ray patient rang her samson and was requesting an update and wanted to leave. She declined the x-ray. Heart rate was still tachycardic but unlikely to be from
PE with negative D-dimer. She does feel somewhat better after IV fluids. Explained to her that I cannot rule out pneumonia or other acute lung process without imaging like an x-ray she understood this but still wanted to go home. Advise follow-up
with family doctor
ED Attending Note
-
Portions of this chart may have been created with voice recognition software.� Occasional wrong word or��sound alike� substitutions may have occurred due to the inherent limitations of voice recognition software.
Discharge Plan
Departure
Patient Disposition: Home (Routine Discharge)
Date of Disposition: 06/17/24
Time of Disposition: 14:50
Patient with high blood pressure during this ER visit?: No
Discharge Problem:
Chest pain
Instructions: Chest Pain PCP Follow Up
Prescriptions:
No Action
medroxyprogesterone [Depo-Provera] 150 MG/1 ML syringe
150 mg IM .EVERY 3 MONTHS
prednisone 10 MG tablet
10 mg PO .TAPER Qty: 30 0RF
Rx Instructions:
Take 40mg daily x3days, 30mg daily x3days,
20mg daily x3days, 10mg daily x3days.
penicillin V potassium 500 MG tablet
500 mg PO QID Qty: 27 0RF
metoclopramide HCl [Reglan] 10 mg tablet
10 mg PO Q8HPRN PRN (Reason: nausea and vomiting) Qty: 9 0RF
ondansetron 4 mg tablet,disintegrating
4 mg PO Q8H PRN (Reason: nausea and vomiting) Qty: 10 0RF
Referrals:
NONE,* [Family Provider] -
Activity Restrictions/Additional Instructions:
As discussed, your heart rate was high here. Please follow-up with your doctor for recheck. Return here if worse.
Interventions
Interventions:
*Risk Screen - Suicide Last Done: 06/17/24 13:21
*General Assessment Last Done: 06/17/24 11:19
*Neglect/Abuse Screening Last Done: 06/17/24 13:21
ED- Fall Risk Assessment Last Done: 06/17/24 13:21
*ED COVID-19 Vaccine History Last Done: 06/17/24 13:21
ED- Cardiac Assessment Last Done: 06/17/24 13:01
Discharge Date and Time
Print Language: SURINAMESE
[2024-06-17] MEDS: NSS 1000 IV (13:17)
[2024-06-17 13:40] LABS: COVID-19 Antigen Negative (Negative)
[2024-06-17 14:00] VITALS: BP 100/60
[2024-06-17 14:00] LABS: D-Dimer < 0.27 ug/mlFEU (0.00-0.50)
== END 2024-06-17 15:35 | disposition home or self-care (01) ==
LOC: EMR 11:17
PROVIDERS: Emergency Medicine; Physician Assistant; EMERGENCY PHYSICIAN Emergency Medicine
DX: R07.89 Other chest pain (principal); R05.9 Cough, unspecified; R00.0 Tachycardia, unspecified; Z11.52 Encounter for screening for COVID-19; F32.A Depression, unspecified; Z91.048 Other nonmedicinal substance allergy status
CPT/HCPCS: 99284; 96360; 96361; 80053; 84484; 84703; 85025; 85379; 85610; 87502; 87811; 93005